=== PATIENT | male | born 1975 ===

== ENCOUNTER 2017-12-28 17:47 | Emergency (ER) | payer BC, OTHER ==
[2017-12-28 18:21] VITALS: BP 130/95
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
[2017-12-28] MEDS ORDERED: Azithromycin TAB* 250 MG PO ONE (20:14)
--- NOTE | 2017-12-28 20:18 | RAD ---
HISTORY: Chest pain, trauma COMPARISONS: None VIEWS: 4: Frontal dual-energy and lateral views of the chest. FINDINGS: CARDIOMEDIASTINAL SILHOUETTE: The cardiomediastinal silhouette is normal. BRADY: The brady are normal. PLEURA: The costophrenic angles are sharp. No pleural abnormalities are noted. LUNG PARENCHYMA: The lungs are clear. ABDOMEN: The upper abdomen is clear. There is no subphrenic gas. BONES AND SOFT TISSUES: No bone or soft tissue abnormalities are noted. OTHER: None. IMPRESSION: NO ACTIVE CARDIOPULMONARY DISEASE.
--- NOTE | 2017-12-28 20:18 | RAD ---
HISTORY: Left-sided chest pain, trauma COMPARISONS: None VIEWS: 3, Frontal view of the chest with frontal and oblique views of the left hemithorax FINDINGS: There is a nondisplaced fracture of the left ninth rib. There is no appreciable pneumothorax. IMPRESSION: NONDISPLACED FRACTURE OF THE LEFT NINTH RIB. NO APPRECIABLE PNEUMOTHORAX.
== END 2017-12-28 20:39 | disposition home or self-care (01) ==
LOC: UCEAST 17:47
DX: J40 Bronchitis, not specified as acute or chronic (principal); S22.32XA Fracture of one rib, left side, initial encounter for closed fracture; W50.0XXA Accidental hit or strike by another person, initial encounter; Y93.71 Activity, boxing; Y92.9 Unspecified place or not applicable
CPT/HCPCS: 71046; 87502; 99202; A9270-GY; G0463

== ENCOUNTER 2018-03-06 13:49 | Emergency (ER) | payer OTHER ==
[2018-03-06 14:24] VITALS: BP 152/105
--- NOTE | 2018-03-06 15:02 | RAD ---
HISTORY: Bilateral wrist pain, injury COMPARISONS: None VIEWS: 6, Frontal, lateral, and oblique views left wrist and of the right wrist. FINDINGS: Right: BONE DENSITY: Normal. BONES: There is no displaced fracture. JOINTS: There is no arthropathy. ALIGNMENT: There is no dislocation. The alignment is anatomic. SOFT TISSUES: Unremarkable. Left: BONE DENSITY: Normal. BONES: There is no displaced fracture. JOINTS: There is no arthropathy. ALIGNMENT: There is no dislocation. The alignment is anatomic. SOFT TISSUES: Unremarkable. OTHER FINDINGS: None. IMPRESSION: NO ACUTE OSSEOUS INJURY BILATERALLY. IF SYMPTOMS PERSIST, RECOMMEND REPEAT IMAGING.
--- NOTE | 2018-03-06 15:12 | UC ---
Upper Extremity HPI - HPI Summary HPI Summary: 42 yo male c/o B/L wrist pain associated with punching a hard old bag that is more dense in the bottom part of the bag and thinks he injured both wrists, denies numbness and tingling or bony tenderness - History of Current Complaint Chief Complaint: UCUpperExtremity Stated Complaint: BOTH WRIST INJURIES Time Seen by Provider: 03/06/18 14:16 Hx Obtained From: Patient Onset/Duration: Sudden Onset Severity Initially: Moderate Severity Currently: Moderate Pain Intensity: 6 Character: Throbbing, Stiffness Aggravating Factor(s): Movement Alleviating Factor(s): Nothing Associated Signs And Symptoms: Positive: Swelling - Allergies/Home Medications Allergies/Adverse Reactions: Allergies Allergy/AdvReac Type Severity Reaction Status Date / Time No Known Allergies Allergy Verified 03/06/18 14:20 Home Medications: Home Medications NK [No Home Medications Reported] 03/06/18 [History Confirmed 03/06/18] PMH/Surg Hx/FS Hx/Imm Hx Previously Healthy: Yes - Surgical History Surgical History: None - Family History Known Family History: Positive: None - Social History Alcohol Use: Occasionally Substance Use Type: None Smoking Status (MU): Never Smoked Tobacco Review of Systems Constitutional: Negative Skin: Negative Eyes: Negative ENT: Negative Respiratory: Negative Cardiovascular: Negative Gastrointestinal: Negative Genitourinary: Negative Motor: Negative Neurovascular: Negative Musculoskeletal: Other: - B/L wrist pain Neurological: Negative Psychological: Negative All Other Systems Reviewed And Are Negative: Yes Physical Exam Triage Information Reviewed: Yes Appearance: Well-Appearing Vital Signs: Initial Vital Signs Temp 37.0 C 03/06/18 14:20 Pulse 75 03/06/18 14:20 Resp 14 03/06/18 14:20 BP 152/105 03/06/18 14:20 Pulse Ox 97 03/06/18 14:20 Eye Exam: Normal ENT Exam: Normal Dental Exam: Normal Neck exam: Normal Neck: Positive: 1 Respiratory Exam: Normal Cardiovascular Exam: Normal Abdominal Exam: Normal Musculoskeletal: Positive: Other: - no bont tenderness, mildly tender over B/L lateral portion of flexor and extensor retinaculum Neurological Exam: Normal Psychological Exam: Normal Skin Exam: Normal Upper Extremity Course/Dx - Course Course Of Treatment: XR or B/L wrist no fx noted, likely wrist sprain, advisd change out the old hardened bagand apply more wrist support - Differential Dx/Diagnosis Differential Diagnosis/HQI/PQRI: Strain, Sprain Provider Diagnoses: wrist sprain Discharge - Sign-Out/Discharge Documenting (check all that apply): Discharge/Admit/Transfer - Discharge Plan Condition: Stable Disposition: HOME Patient Education Materials: Wrist Sprain (ED) Referrals: No Primary Care Phys,NOPCP [Primary Care Provider] - - Billing Disposition and Condition Condition: STABLE Disposition: HOME
== END 2018-03-06 15:25 | disposition home or self-care (01) ==
LOC: UCEAST 13:49
DX: S63.502A Unspecified sprain of left wrist, initial encounter (principal); S63.501A Unspecified sprain of right wrist, initial encounter; W21.89XA Striking against or struck by other sports equipment, initial encounter; Y93.A1 Activity, exercise machines primarily for cardiorespiratory conditioning; Y92.9 Unspecified place or not applicable
CPT/HCPCS: 99211; G0463